=== PATIENT | female | born 1940 | race Two or more races ===

== ENCOUNTER 2017-11-03 14:50 | Day surgery (SDC) | payer OTHER ==
[2017-11-03] MEDS ORDERED: HEPARIN 1000 UNITS/ML 10 ML INJ (15:51)
[2017-11-03] MEDS ORDERED: IODIXANOL LOCM 100 ML BTL ×2 (15:51→16:39)
[2017-11-03] MEDS ORDERED: NITROGLYCERIN (IC) 100 MCG/ML INJ (15:51)
[2017-11-03] MEDS ORDERED: VERAPAMIL 5 MG INJ (15:51)
[2017-11-03] MEDS ORDERED: LIDOCAINE 1% (MDV) 20 ML INJ (15:51)
[2017-11-03] MEDS ORDERED: FENTAnyl 50 MCG/ML VIAL (15:52)
[2017-11-03] MEDS ORDERED: MIDAZOLAM 1 MG/ML 2 ML INJ (15:52)
[2017-11-03] MEDS ORDERED: BIVALIRUDIN 250MG /NS 50 ML 50 ML IVPB (16:38)
[2017-11-03] MEDS: SOD CHLORIDE 0.9% 1,000 ML IV (18:47)
== END 2017-11-03 20:45 | disposition short-term general hospital (02) ==
LOC: CCL 14:50 → SDS 14:50 → CCL 20:45
DX: I21.4 Non-ST elevation (NSTEMI) myocardial infarction (principal); I25.10 Atherosclerotic heart disease of native coronary artery without angina pectoris; I10 Essential (primary) hypertension; E78.5 Hyperlipidemia, unspecified
CPT/HCPCS: 93454; 93571